=== PATIENT | female | born 1950 | race Caucasian/White ===

== ENCOUNTER → 2017-12-10 | Outpatient (CLI) | payer OTHER ==
[~2017-12-10] MED LIST: ASPI325; ATEN50; DIAZ5; GLIM2; HYDACE5; ROSU10TA; SPIHYD
== END | disposition home or self-care (01) ==
LOC: LAB 13:51 → LAB SHORT 13:51
DX: D23.22 Other benign neoplasm of skin of left ear and external auricular canal (principal)
CPT/HCPCS: 88305